=== PATIENT | female | born 1965 | race Caucasian/White ===

== ENCOUNTER → 2016-12-09 | Outpatient (CLI) | payer BC ==
[~2016-12-09] MED LIST: ADVIL200 MG PO; ATIVAN0.5 MG PO; CELEBREX200 MG PO; CITALOPRAM HBR20 MG PO; COLACE100 MG PO; DECADRON4 MG PO; DEXAMETHASONE4 MG PO; GABAPENTIN300 MG PO; LORAZEPAM0.5 MG PO; NEURONTIN300 MG PO; NUCYNTA50 MG PO; ONDANSETRON HCL8 MG PO; OXAYDO5 MG PO; SILVADENE20 GM TP; VITAMIN B-12250 MCG PO; VITAMIN B-6200 MG PO
== END | disposition home or self-care (01) ==
LOC: OPR 12-06 09:00 → EDSTATUS 12-06 09:00 → OPR 07:37
PROC: 0BBC3ZX Excision of Right Upper Lung Lobe, Percutaneous Approach, Diagnostic (ICD-10-PCS; principal; 2016-12-09)
DX: C34.11 Malignant neoplasm of upper lobe, right bronchus or lung (principal); Z85.3 Personal history of malignant neoplasm of breast; F41.9 Anxiety disorder, unspecified; Z85.42 Personal history of malignant neoplasm of other parts of uterus; M54.5 Low back pain
CPT/HCPCS: 71010; 77012; 88307; 88341 TC; 88342 TC; J3010

== ENCOUNTER 2017-02-09 17:30 | Inpatient (IN) | payer BC ==
[~2017-02-09] VITALS: Ht 165.1 cm; Wt 75.2 kg
[2017-02-09 20:17] LABS: HEMATOCRIT 41.1 % (36.0-46.0); MCH 28.5 PG (29.0-34.0); MCHC 33.1 G/DL (30.0-36.0); MCV 86.2 FL (83-99); MEAN PLAT.VOLUME 8.8 uM^3 (9.5-12.4); PLATELET COUNT 248 K/uL (156-360); RBC DIS.WIDTH-CV 12.4 % (11.8-14.6); RED BLOOD COUNT 4.77 M/uL (3.80-5.20); WHITE BLOOD COUNT 9.8 K/uL (4.1-10.2)
[2017-02-09 20:26] LABS: CHLORIDE 106 mEq/L (99-109); POTASSIUM 3.8 mEq/L (3.7-5.4); SODIUM 142 mEq/L (136-147)
[2017-02-09 20:28] LABS: GLUCOSE 82 mg/dL (70-99)
[2017-02-09 20:29] LABS: ANION GAP 12 MEQ/L (2-14)
[2017-02-09 20:32] LABS: GFR ESTIMATE (CALCULATED) > 59 mL/min/
[2017-02-09 20:33] LABS: UREA NITROGEN (BUN) 9 mg/dL (9-23)
[2017-02-09] MEDS ORDERED: EFFEXOR XR75 MG PO (20:58)
[2017-02-09] MEDS ORDERED: LEVETIRACETAM250 MG PO (20:58)
[2017-02-09 22:04] LABS: ADD MIUA? YES; BILIRUBIN NEGATIVE; BLOOD NEGATIVE; COLOR STRAW ((YELLOW)); GLUCOSE (STRIP) NEGATIVE; KETONES NEGATIVE; LEUKOCYTES TRACE; NITRITE NEGATIVE; PROTEIN (STRIP) NEGATIVE; UROBILINOGEN 0.2 MG/DL (0.2-1.0)
[2017-02-09 22:40] LABS: BACTERIA NONE SEEN /HPF; EPITHELIAL CELLS RARE /HPF; MUCUS TRACE /LPF; RED BLOOD CELLS 0-5 /HPF (0-5); UCUL ADDED? NO
[2017-02-10 00:20] VITALS: BP 108/66
[2017-02-10 06:50] VITALS: BP 94/54
[2017-02-10 11:30] VITALS: BP 117/65
[2017-02-10 15:51] VITALS: BP 112/72
[2017-02-10 19:09] VITALS: BP 112/70
[2017-02-10 23:05] VITALS: BP 108/58
[2017-02-11 03:31] VITALS: BP 119/63
[2017-02-11 06:44] VITALS: BP 106/59
[2017-02-11] MEDS ORDERED: SUMATRIPTAN SU100 MG PO (09:56)
[2017-02-11] MEDS ORDERED: DECADRON4 MG PO (09:56)
== END 2017-02-11 12:50 | disposition home or self-care (01) | DRG 54 ==
LOC: EME 17:30 → EDOF 21:50 → 5EAST 21:50
PROVIDERS: Emergency Medicine
DX: C79.31 Secondary malignant neoplasm of brain (principal); G93.6 Cerebral edema; C78.00 Secondary malignant neoplasm of unspecified lung; C50.911 Malignant neoplasm of unspecified site of right female breast; R51 Headache; H53.8 Other visual disturbances
CPT/HCPCS: 70553; 80048; 81003; 85027; 99281; 99284; J0780; J1100; J1200; J7030

== ENCOUNTER → 2017-02-25 | Outpatient (CLI) | payer BC ==
[~2017-02-25] MED LIST changes: +EFFEXOR XR75 MG PO; +LEVETIRACETAM250 MG PO; +SUMATRIPTAN SU100 MG PO
== END | disposition home or self-care (01) ==
LOC: NUC 02-24 09:00
DX: C79.9 Secondary malignant neoplasm of unspecified site (principal); C50.919 Malignant neoplasm of unspecified site of unspecified female breast
CPT/HCPCS: 78306; A9503

== ENCOUNTER → 2017-06-29 | Outpatient (CLI) | payer BC ==
[~2017-06-29] VITALS: Ht 165.1 cm; Wt 97.1 kg
[~2017-06-29] MED LIST changes: +COMPAZINE5 MG PO; +DECADRON2 MG PO; +KEPPRA500 MG PO; +ROXICODONE5 MG PO
== END | disposition home or self-care (01) ==
LOC: OPR 08:38 → EDSTATUS 09:00 → OPR 09:00
PROC: 07B13ZX Excision of Right Neck Lymphatic, Percutaneous Approach, Diagnostic (ICD-10-PCS; principal; 2017-06-29)
DX: C77.0 Secondary and unspecified malignant neoplasm of lymph nodes of head, face and neck (principal); Z85.3 Personal history of malignant neoplasm of breast; Z17.1 Estrogen receptor negative status [ER-]; C79.31 Secondary malignant neoplasm of brain; C78.00 Secondary malignant neoplasm of unspecified lung; Z92.21 Personal history of antineoplastic chemotherapy; Z92.3 Personal history of irradiation; F43.21 Adjustment disorder with depressed mood; Z80.3 Family history of malignant neoplasm of breast; Z80.1 Family history of malignant neoplasm of trachea, bronchus and lung; Z88.0 Allergy status to penicillin; Z88.1 Allergy status to other antibiotic agents
CPT/HCPCS: 76942; 88305; 88341 TC; 88342 TC; J3010